=== PATIENT | male | born 1990 | race Hispanic/Latino ===

== ENCOUNTER 2021-06-19 13:17 | Inpatient (IN) | payer SELFPAY ==
[~2021-06-19] VITALS: Ht 190.5 cm; Wt 163.3 kg
[2021-06-19 14:00] LABS: BASOPHILS % 0.2 % (0.0-1.0); HEMATOCRIT 50.8 % (38.2-49.6); HEMOGLOBIN 16.5 g/dL (14.0-18.0); LYMPHOCYTES # (AUTO) 1.4 (1.0-3.2); LYMPHOCYTES % 11.2 % (18.0-39.1); MEAN CORPUSCULAR HGB CONC 32.5 g/dL (31-35); MEAN CORPUSCULAR VOLUME 86.1 fL (81-99); MONOCYTES # (AUTO) 0.6 (0.2-0.8); MONOCYTES % 4.8 % (4.4-11.3); NEUTROPHILS # (AUTO) 10.5 (2.1-6.9); NEUTROPHILS % 82.3 % (38.7-80.0); PLATELET COUNT 165 x10e3/uL (140-360); RED CELL DISTRIBUTION WIDTH 12.9 % (11.7-14.4)
[2021-06-19] MEDS ORDERED: REMDESIVIR 200MG/NS 100ML 200 MG IV ONE (14:00)
[2021-06-19] MEDS: CEFTRIAXONE 1 GM in SODIUM CHLORIDE 0.9% 50ML 50 ML IV SCH (14:01)
[2021-06-19] MEDS: ASCORBIC ACID 500 MG TAB PO SCH (14:01)
[2021-06-19 14:18] LABS: ALBUMIN 2.6 g/dL (3.5-5.0); ALBUMIN/GLOBULIN RATIO 0.5 (0.8-2.0); ANION GAP 19.1 mmol/L (8-16); CALCIUM 8.2 mg/dL (8.4-10.2); CREATININE, SERUM 1.26 mg/dL (0.72-1.25); POTASSIUM 4.1 mmol/L (3.5-5.1)
[2021-06-19 14:24] LABS: CREATINE KINASE MB 0.8 ng/mL (0-5.0)
[2021-06-19] MEDS ORDERED: ZOLPIDEM TARTRATE 5 MG TAB PO PRN (14:45)
[2021-06-19] MEDS ORDERED: SODIUM CHLORIDE 0.9% 500ML 500 ML IV ONE (16:00)
[2021-06-20] MEDS ORDERED: ONDANSETRON HCL INJ 2MG/ML 2ML 2 MG/ML VIAL IV PRN (06:45)
[2021-06-20] MEDS ORDERED: ZOLPIDEM TARTRATE 5 MG TAB PO PRN (06:45)
[2021-06-20] MEDS ORDERED: DOCUSATE SODIUM 100 MG CAP PO PRN (06:45)
[2021-06-20 08:05] LABS: BASOPHILS % 0.2 % (0.0-1.0); HEMOGLOBIN 16.3 g/dL (14.0-18.0); LYMPHOCYTES # (AUTO) 0.8 (1.0-3.2); LYMPHOCYTES % 7.3 % (18.0-39.1); MEAN CORPUSCULAR HEMOGLOBIN 28.3 pg (28-32); MEAN CORPUSCULAR HGB CONC 32.6 g/dL (31-35); MEAN CORPUSCULAR VOLUME 86.8 fL (81-99); MONOCYTES # (AUTO) 0.5 (0.2-0.8); MONOCYTES % 4.6 % (4.4-11.3); NEUTROPHILS # (AUTO) 10.1 (2.1-6.9); PLATELET COUNT 186 x10e3/uL (140-360); RED BLOOD COUNT 5.76 x10e6/uL (4.3-5.7); RED CELL DISTRIBUTION WIDTH 13.2 % (11.7-14.4)
[2021-06-20 08:25] LABS: ALBUMIN 2.5 g/dL (3.5-5.0); ALBUMIN/GLOBULIN RATIO 0.5 (0.8-2.0); ANION GAP 15.2 mmol/L (8-16); CALCIUM 8.4 mg/dL (8.4-10.2); CREATININE, SERUM 0.75 mg/dL (0.72-1.25); POTASSIUM 4.2 mmol/L (3.5-5.1)
[2021-06-20] MEDS: ENOXAPARIN SOD INJ 40 MG/0.4 ML SYR SC SCH ×3 (09:00→23:30)
[2021-06-20] MEDS: ZINC SULFATE 50 MG CAP PO SCH (09:00)
[2021-06-20] MEDS: ZINC SULFATE 220 MG CAP PO SCH (10:20)
[2021-06-20] MEDS: ASCORBIC ACID 500 MG TAB PO SCH ×2 (10:20→17:30)
[2021-06-20] MEDS: CEFTRIAXONE 1 GM in SODIUM CHLORIDE 0.9% 50ML 50 ML IV SCH (13:39)
[2021-06-20] MEDS: REMDESIVIR 100MG/NS 100ML 100 MG IV SCH (14:03)
[2021-06-20] MEDS ORDERED: FAMOTIDINE 20 MG/2 ML VIAL IV STA (22:00)
[2021-06-21 07:22] LABS: ALBUMIN 2.6 g/dL (3.5-5.0); ALBUMIN/GLOBULIN RATIO 0.5 (0.8-2.0); ANION GAP 15.7 mmol/L (8-16); CALCIUM 8.2 mg/dL (8.4-10.2); CREATININE, SERUM 0.75 mg/dL (0.72-1.25); POTASSIUM 3.7 mmol/L (3.5-5.1)
[2021-06-21] MEDS: ZINC SULFATE 50 MG CAP PO SCH ×3 (07:29→08:25)
[2021-06-21] MEDS: ASCORBIC ACID 500 MG TAB PO SCH ×2 (08:01→16:43)
[2021-06-21] MEDS: ZINC SULFATE 220 MG CAP PO SCH (08:01)
[2021-06-21] MEDS: ACETAMINOPHEN 325 MG TAB PO PRN ×2 (08:25→12:48)
[2021-06-21] MEDS: ENOXAPARIN SOD INJ 40 MG/0.4 ML SYR SC SCH (08:39)
[2021-06-21] MEDS ORDERED: VANCOMYCIN HCL 1GM/NS 250 ML BAG IV ONE (10:00)
[2021-06-21] MEDS ORDERED: MORPHINE SULFATE INJ 4 MG/ML INJ 1ML IV PRN (10:00)
[2021-06-21] MEDS ORDERED: MORPHINE SULFATE INJ 2 MG/ML SYR ONE (10:14)
[2021-06-21] MEDS ORDERED: Vancomycin IV 1 GM in SODIUM CHLORIDE 0.9% 250ML 250 ML IV ONE (10:15)
[2021-06-21 10:25] LABS: BASOPHILS # (AUTO) 0.1 (0.0-0.1); BASOPHILS % 0.3 % (0.0-1.0); HEMATOCRIT 48.8 % (38.2-49.6); HEMOGLOBIN 15.8 g/dL (14.0-18.0); LYMPHOCYTES # (AUTO) 0.9 (1.0-3.2); MEAN CORPUSCULAR HEMOGLOBIN 28.6 pg (28-32); MEAN CORPUSCULAR HGB CONC 32.4 g/dL (31-35); MEAN CORPUSCULAR VOLUME 88.2 fL (81-99); MONOCYTES # (AUTO) 0.8 (0.2-0.8); MONOCYTES % 4.9 % (4.4-11.3); NEUTROPHILS # (AUTO) 15.2 (2.1-6.9); NEUTROPHILS % 88.8 % (38.7-80.0); PLATELET COUNT 114 x10e3/uL (140-360); RED BLOOD COUNT 5.53 x10e6/uL (4.3-5.7); RED CELL DISTRIBUTION WIDTH 13.2 % (11.7-14.4)
[2021-06-21] MEDS ORDERED: Vancomycin IV 1.25 GM in SODIUM CHLORIDE 0.9% 250ML 250 ML IV SCH (10:45)
[2021-06-21] MEDS: REMDESIVIR 100MG/NS 100ML 100 MG IV SCH (14:59)
[2021-06-21] MEDS ORDERED: ACETAMINOPHEN 1000 MG/100 ML IV SCH (18:00)
[2021-06-21] MEDS ORDERED: IBUPROFEN 800 MG/8 ML VIAL IV ONE (18:30)
[2021-06-21] MEDS: DEXMEDETOMIDINE 200MCG/NS 50ML 50 ML IV SCH ×3 (18:36→20:20)
[2021-06-21 18:59] VITALS: BP 114/65
[2021-06-21] MEDS ORDERED: IBUPROFEN 800MG/ 200ML 200 ML IV ONE ×2 (19:00→22:20)
[2021-06-21] MEDS ORDERED: LORAZEPAM INJ 2 MG/ML VIAL IV PRN (20:45)
[2021-06-21] MEDS ORDERED: ENOXAPARIN SODIUM INJ 100 MG/ML SYR SC SCH (21:00)
[2021-06-21] MEDS ORDERED: LORAZEPAM INJ 2 MG/ML VIAL IV ONE (22:15)
[2021-06-21] MEDS ORDERED: NOREPINEPHRINE 8 MG/D5W 250 ML 250 ML ONE (23:20)
[2021-06-21] MEDS ORDERED: MIDAZOLAM HCL 5MG/ML 10ML VIAL 0 ML IV ONE (23:36)
[2021-06-21] MEDS ORDERED: FENTANYL 2000MCG/NS 250 250 ML ONE (23:36)
[2021-06-21] MEDS ORDERED: SODIUM CHLORIDE 0.9% 1000ML 1,000 ML ONE (23:47)
[2021-06-22] MEDS ORDERED: EPINEPHRINE HCL 1:1000 1ML 1 MG/ML AMP ONE (00:04)
[2021-06-22] MEDS ORDERED: SODIUM CHLORIDE 0.9% 250ML 250 ML ONE (00:05)
[2021-06-22] MEDS ORDERED: SODIUM BICARBONATE 8.4% SYRING 100 ML ONE (00:19)
[2021-06-25] MEDS ORDERED: DEXAMETHASONE SOD PHOS 10 MG/1 ML VIAL IV SCH (09:00)
== END 2021-06-22 00:18 | disposition expired | DRG 208 ==
LOC: ER 13:25 → ERHOLD 14:47
PROVIDERS: ADMIT Internal Medicine; ATTEND Internal Medicine
PROC: XW043E5 Introduction of Remdesivir Anti-infective into Central Vein, Percutaneous Approach, New Technology Group 5 (ICD-10-PCS; principal; 2021-06-19)
PROC: 02HV33Z Insertion of Infusion Device into Superior Vena Cava, Percutaneous Approach (ICD-10-PCS; 2021-06-19)
PROC: 8E0ZXY6 Isolation (ICD-10-PCS; 2021-06-19)
PROC: 5A1945Z Respiratory Ventilation, 24-96 Consecutive Hours (ICD-10-PCS; 2021-06-20)
PROC: 0BH17EZ Insertion of Endotracheal Airway into Trachea, Via Natural or Artificial Opening (ICD-10-PCS; 2021-06-20)
DX: U07.1 COVID-19 (principal); J12.82 Pneumonia due to coronavirus disease 2019; J96.01 Acute respiratory failure with hypoxia; N17.9 Acute kidney failure, unspecified; Z68.42 Body mass index [BMI] 45.0-49.9, adult; E66.01 Morbid (severe) obesity due to excess calories; E11.9 Type 2 diabetes mellitus without complications
CPT/HCPCS: 31500; 36415; 36569; 71045; 80053; 82550; 82553; 82948; 83880; 84484; 85025; 87040; 87071; 87186; 87205; 92950; 93005; 94002; 94660; 99283; J0171; J0456; J0696; J1650; J2060; J2270; J2405; J3370; J7030; J7050; U0002